=== PATIENT | male | born 2000 | race Caucasian/White ===

== ENCOUNTER 2024-02-21 15:09 | Emergency (ER) | payer OTHER ==
--- OUTSIDE RECORDS SUMMARY | 2024-02-21 15:12 | XMS REPORT | Continuity of Care Document ---
Author Name Unknown Address [address] [place] [address] thconnect Address [address] [place] [address] [id number] [place] [address] Care Team Providers Care Medical Physiologist Name Role Phone Unavailable Unavailable Unavailable
--- NOTE | 2024-02-21 16:19 | RAD REPORT ---
EXAMINATION: CT LUMBAR SPINE WITHOUT CONTRAST CLINICAL INDICATION: Male, 23 years old. PAIN TECHNIQUE: Axial CT images were obtained through the lumbar spine in soft tissue and bone windows wit hout intravenous contrast. Coronal and Sagittal reformatted images were created from the data set. One or more of the following dose reduction techniques were used: Automated exposure control, adjustm ent of the mA and/ or kV according to patient size, and/or iterative reconstruction. Unless otherwise specified, incidental findings do not require dedicated imaging follow-up. COMPARISON: No prior exam. FINDINGS: For purposes of this dictation, it is assumed that there are 5 non rib-bearing lumbar type vertebrae, and the most caudal fully segmented lumbar vertebra is labeled L5. ALIGNMENT: The lumbar spine demonstrates normal alignment without scoliosis or spondylolisthesis. BONES: No significant soft tissue abnormalities. No aggressive osseous lesions. DISCS: Disc space is mildly thinned at L5-S1. LEVELS: Posterior disc bulge noted L3-4, L4-5 and L5-S1. Mild central canal narrowing. SOFT TISSUE: No soft tissue abnormalities. IMPRESSION: No acute lumbar spine abnormalities. Mild lower lumbar spondylosis.
[2024-02-21] MEDS ORDERED: GABAPENTIN 300 MG CAP ONE (16:46)
[2024-02-21] MEDS ORDERED: dexAMETHasone 10 MG/ML VIAL ONE (16:47)
[2024-02-21] MEDS ORDERED: KETOROLAC 30 MG/ML INJ ONE (16:47)
--- NOTE | 2024-02-21 16:53 | ER ---
Nurse's Notes [facility] Name: Kyle Harry Age: 23 yrs Sex: Male : 2000 Arrival Date: 02/21/2024 Time: 15:09 Bed DX3 Private MD: Diagnosis: Other intervertebral disc degeneration, lumbosacral region;Intervertebral disc disorders with radiculopathy, lumbosacral region Presentation: 02/20 15:18 Chief complaint: Patient states: I was hunting on 02/17/24 and killed a deer, when I tm6 pulled him in, I started to feel something in my back and a spasm, wasn't able to stand up straight. I went to an ER that day and they kept me overnight. Since I've been released I still have been having pain and trouble walking. Coronavirus screen: Client denies travel out of the [place] in the last 14 days. Ebola Screen: Patient negative for fever greater than or equal to 101.5 degrees Fahrenheit, and additional compatible Ebola Virus Disease symptoms Patient denies exposure to infectious person. Patient denies travel to an Ebola-affected area in the 21 days before illness onset. No symptoms or risks identified at this time. Onset of symptoms was February 17, 2024. 15:18 Method Of Arrival: Ambulatory tm6 15:18 Acuity: GLORIA 4 tm6 15:35 Risk Assessment: Do you want to hurt yourself or someone else? Patient reports no tm6 desire to harm self or others. 16:55 Initial Sepsis Screen: Does the patient meet any 2 criteria? No. Patient's initial bp sepsis screen is negative. Does the patient have a suspected source of infection? No. Patient's initial sepsis screen is negative. Triage Assessment: 15:18 General: Appears uncomfortable, Behavior is calm, cooperative. Pain:. EENT: No signs tm6 and/or symptoms were reported regarding the EENT system. Neuro: Level of Consciousness is awake, alert, obeys commands, Oriented to person, place, time, situation. Cardiovascular: Patient's skin is warm and dry. Respiratory: Airway is patent Respiratory effort is even, unlabored, Respiratory pattern is regular, symmetrical. GI: No signs and/or symptoms were reported involving the gastrointestinal system. Abdomen is flat, non-distended. : No signs and/or symptoms were reported regarding the genitourinary system. Derm: No signs and/or symptoms reported regarding the dermatologic system. 15:21 Pain: Complains of pain in lumbar area, left low back and right low back. tm6 Musculoskeletal: Circulation, motion, and sensation intact. Reports pain in lumbar area, left low back and right low back. Historical: - Allergies: 15:36 No Known Allergies; tm6 - PMHx: 15:36 elbow fracture; right wrist fracture (elbow fracture); tm6 - PSHx: 15:36 None; tm6 - Immunization history:: Flu vaccine is not up to date. - Infectious Disease History:: Denies. - Social history:: Smoking status: Reported history of juuling and/or vaping. - Family history:: not pertinent. - Hospitalizations: : No recent hospitalization is reported. Screenin:54 [facility] ED Fall Risk Assessment (Adult) History of falling in the last 3 months, bp including since admission No falls in past 3 months (0 pts) Confusion or Disorientation No (0 pts) Intoxicated or Sedated No (0 pts) Impaired Gait No (0 pts) Mobility Assist Device Used No (0 pt) Altered Elimination No (0 pt) Score/Fall Risk Level 0 - 2 = Low Risk Oriented to surroundings. Abuse screen: Denies threats or abuse. Denies injuries from another. Nutritional screening: No deficits noted. Tuberculosis screening: No symptoms or risk factors identified. Assessment: 16:30 General: Appears in no apparent distress. Behavior is calm, cooperative, appropriate bp for age. Neuro: Level of Consciousness is awake, alert, obeys commands, Oriented to Appropriate for age. Vital Signs: 15:35 Resp 16; Temp 98.3(TE); Weight 74.84 kg; Height 6 ft. 0 in. ; Pain 6/10; tm6 15:37 BP 100 / 66; Pulse 102; Pulse Ox 99% on R/A; MAP 76 mmHg; tm6 15:35 Body Mass Index 22.38 (74.84 kg, 182.88 cm) tm6 15:35 Pain Scale: Adult tm6 ED Course: 15:12 Patient arrived in ED. ra3 15:16 Willard Cooper MD is Attending Physician. rn 15:18 Arm band placed on right wrist. tm6 15:20 Triage completed. tm6 15:58 CT Lumbar Spine Wo Con In Process Unspecified. EDMS 16:53 Merlin Campa, RN is Primary Nurse. bp 16:54 Patient has correct armband on for positive identification. bp 16:55 Provided Education on: NA. bp 16:55 No provider procedures requiring assistance completed. Patient did not have IV access bp during this emergency room visit. Administered Medications: 16:52 Drug: Ketorolac IM 30 mg IM once Route: IM; Site: right vastus lateralis; bp 16:56 Follow up: Response: No adverse reaction bp 16:52 Drug: Dexamethasone IM 10 mg IM once Route: IM; Site: right vastus lateralis; bp 16:56 Follow up: Response: No adverse reaction bp 16:52 Drug: Gabapentin PO 300 mg PO once Route: PO; bp 16:56 Follow up: Response: No adverse reaction bp Medication: 16:55 VIS not applicable for this client. bp Outcome: 16:53 Discharge ordered by MD. rn 16:55 Discharged to home ambulatory, bp 16:55 Condition: stable 16:55 Discharge instructions given to patient, Instructed on discharge instructions, follow up and referral plans. medication usage, Demonstrated understanding of instructions, follow-up care, medications, Prescriptions given X 1, 16:59 Patient left the ED. bp Signatures: Dispatcher [employer] EDMS Willard Cooper MD MD rn Peltier, Brian, RN RN Esther Nichole RN RN tm6 Chacha Boss 3
--- NOTE | 2024-02-21 16:53 | EDPHYS ---
Physician Documentation [facility] Name: Kyle Harry Age: 23 yrs Sex: Male : 2000 Arrival Date: 02/21/2024 Time: 15:09 Bed DX3 Private MD: ED Physician Willard Cooper HPI: 02/20 15:41 This 23 yrs old Male presents to ER via Ambulatory with complaints of Back Pain. rn 15:41 The patient presents with pain that is acute. The symptoms are located in the low back. rn Onset: The symptoms/episode began/occurred 4 day(s) ago. The pain radiates to the right leg and left leg. Associated signs and symptoms: Pertinent negatives: incontinence, urinary retention, weakness. Modifying factors: The patient symptoms are alleviated by nothing, the patient symptoms are aggravated by any movement. Severity of symptoms: At their worst the symptoms were moderate, in the emergency department the symptoms are unchanged. The patient has not experienced similar symptoms in the past. The patient has been recently seen by a physician:. Patient reports injured his back hunting and lifting a deer. Already seen at outside hospital, no images obtained but prescribed medication. Here because pain has not resolved. Reports lower back pain with radiation down both legs with left worse than right. No urinary retention. No incontinence. No weakness.. Historical: - Allergies: 15:36 No Known Allergies; tm6 - PMHx: 15:36 elbow fracture; right wrist fracture (elbow fracture); tm6 - PSHx: 15:36 None; tm6 - Immunization history:: Flu vaccine is not up to date. - Infectious Disease History:: Denies. - Social history:: Smoking status: Reported history of juuling and/or vaping. - Family history:: not pertinent. - Hospitalizations: : No recent hospitalization is reported. ROS: 15:41 Constitutional: Negative for fever, chills, and weight loss, Cardiovascular: Negative rn for chest pain, palpitations, and edema, Respiratory: Negative for shortness of breath, cough, wheezing, and pleuritic chest pain, Abdomen/GI: Negative for abdominal pain, nausea, vomiting, diarrhea, and constipation, Back: Positive for low back pain MS/Extremity: Positive for radiation to bilateral lower extremities Exam: 15:41 Constitutional: This is a well developed, well nourished patient who is awake, alert, rn and in no acute distress. Cardiovascular: No pulse deficits. Back: No spinal tenderness. No costovertebral tenderness. MS/ Extremity: Pulses equal, no cyanosis. Neuro: Awake and alert, GCS 15, Motor strength 5/5 in all extremities. Sensory grossly intact. Vital Signs: 15:35 Resp 16; Temp 98.3(TE); Weight 74.84 kg; Height 6 ft. 0 in. ; Pain 6/10; tm6 15:37 BP 100 / 66; Pulse 102; Pulse Ox 99% on R/A; MAP 76 mmHg; tm6 15:35 Body Mass Index 22.38 (74.84 kg, 182.88 cm) tm6 15:35 Pain Scale: Adult tm6 MDM: 15:16 Medical Screening Exam initiated rn 16:49 Differential diagnosis: arthritis, chronic back pain, Disc herniation. Data reviewed: rn vital signs, nurses notes, radiologic studies, CT scan, and as a result, I will discharge patient. Counseling: I had a detailed discussion with the patient and/or guardian regarding the historical points, exam findings, and any diagnostic results supporting the discharge/admit diagnosis, radiology results, the need for outpatient follow up, to return to the emergency department if symptoms worsen or persist or if there are any questions or concerns that arise at home. ED course: No acute findings on imaging. CT shows lumbar sacral disc bulging, consistent with his lumbar sacral radiculopathy. Patient has been taking hydrocodone along with muscle relaxers and does not seem to be helping. Will try gabapentin, steroids and [id number] pain medication along with follow-up with back specialist and/or physical therapy. Patient states that this has been happening for 6 to 8 years and just aggravated it this past week.. 02/20 15:32 Order name: CT Lumbar Spine Wo Con; Complete Time: 16:20 rn Administered Medications: 16:52 Drug: Ketorolac IM 30 mg IM once Route: IM; Site: right vastus lateralis; bp 16:56 Follow up: Response: No adverse reaction bp 16:52 Drug: Dexamethasone IM 10 mg IM once Route: IM; Site: right vastus lateralis; bp 16:56 Follow up: Response: No adverse reaction bp 16:52 Drug: Gabapentin PO 300 mg PO once Route: PO; bp 16:56 Follow up: Response: No adverse reaction bp Disposition Summary: 02/21/24 16:53 Discharge Ordered Notes: Location: Home rn Problem: chronic rn Symptoms: have improved rn Condition: Stable rn Diagnosis - Other intervertebral disc degeneration, lumbosacral region rn - Intervertebral disc disorders with radiculopathy, lumbosacral region rn Followup: rn - With: Private Physician - When: As needed - Reason: Recheck today's complaints, Re-evaluation by your physician Discharge Instructions: - Discharge Summary Sheet rn - Herniated Disk rn - Lumbosacral Radiculopathy rn Forms: - Medication Reconciliation Form rn - Antibiotic group burner machine - Prescription Opioid Use rn - Patient Portal Instructions rn - Leadership Thank You Letter rn Prescriptions: - gabapentin 100 mg Oral capsule - take 1 capsule ORAL route 2 times per day As needed; 20 capsule; Refills: 0, rn Product Selection Permitted - Medrol (Herson) 4 mg Oral Tablets, Dose Pack - take 1 tablet ORAL route as directed - follow package instructions; 1 packet; rn Refills: 0, Product Selection Permitted Signatures: Dispatcher [employer] EDWillard Laird MD MD rn Peltier, Brian RN RN Esther Nichole RN RN tm6 Corrections: (The following items were deleted from the chart) 15:32 15:32 Spine Lumbar Wo Con+CT.RAD.BRZ ordered. EDUT EDMS
[2024-02-21 17:07] VITALS: TEMP 98.3
[2024-02-21 17:09] VITALS: BP 100/66; O2SAT 99
== END 2024-02-21 16:59 | disposition home or self-care (01) ==
LOC: ER 15:09
DX: M51.379 Other intervertebral disc degeneration, lumbosacral region without mention of lumbar back pain or lower extremity pain (principal); M51.17 Intervertebral disc disorders with radiculopathy, lumbosacral region
CPT/HCPCS: 72131; 96372; 99284; J1100